=== PATIENT | female | born 1990 | race Hispanic/Latino ===

== ENCOUNTER 2020-11-12 13:11 | Outpatient (CLI) | payer BC, OTHER | END 2020-11-12 13:12 | disposition home or self-care (01) | LOC: BICULT 13:11 | PROVIDERS: ATTEND Family Medicine | DX: O09.892 Supervision of other high risk pregnancies, second trimester (principal); Z3A.20 20 weeks gestation of pregnancy | CPT/HCPCS: 76805 ==

== ENCOUNTER 2025-04-18 15:01 | Outpatient (CLI) | payer BC, OTHER | END 2025-04-18 15:02 | disposition home or self-care (01) | LOC: SJX 15:01 | PROVIDERS: ATTEND Family Medicine | DX: O31.22X1 Continuing pregnancy after intrauterine death of one fetus or more, second trimester, fetus 1 (principal); O32.2XX0 Maternal care for transverse and oblique lie, not applicable or unspecified; Z3A.25 25 weeks gestation of pregnancy | CPT/HCPCS: 76805 ==